=== PATIENT | female | born 1965 | race Caucasian/White ===

== ENCOUNTER → 2017-01-01 | Outpatient (CLI) | payer OTHER ==
--- NOTE | 2017-01-03 07:55 | MM ---
Reason for exam: follow-up at short interval from prior study. Last mammogram was performed 8 months ago. History: Patient is postmenopausal. Benign excisional biopsy of the right breast, 1995. Took hormonal contraceptives for 6 months beginning at age 22. Physical Findings: Nurse did not find any significant physical abnormalities on exam. MG Diagnostic Mammo RT w CAD CC and MLO view(s) were taken of the right breast. Prior study comparison: May 10, 2016, right breast MG work up mamm w CAD RT. April 14, 2016, bilateral MG screening mammo w CAD. The breast tissue is heterogeneously dense. This may lower the sensitivity of mammography. Finding: There are a few typically benign round calcifications in the right breast. There is no discrete abnormality. These results were verbally communicated with the patient and result sheet given to the patient on 01/01/17. ASSESSMENT: Benign, BI-RAD 2 RECOMMENDATION: Routine screening mammogram of both breasts in 4 months. Back on schedule.
--- NOTE | 2017-01-03 08:01 | USB ---
Reason for exam: follow-up at short interval from prior study. History: Patient is postmenopausal. Benign excisional biopsy of the right breast, 1995. Took hormonal contraceptives for 6 months beginning at age 22. US Breast RT Right breast ultrasound includes all four quadrants, the retroareolar region and axilla. Finding demonstrate no cystic or solid lesion greater than 0.50c and a 3 x 2 x 3mm oval too small to characterize lesion at 1 o'clock, stable. These results were verbally communicated with the patient and result sheet given to the patient on 01/01/17. ASSESSMENT: Benign, BI-RAD 2 RECOMMENDATION: Routine screening mammogram of both breasts in 4 months. Back on schedule.
== END | disposition home or self-care (01) ==
LOC: RADMAMWWP 07:40
PROVIDERS: ATTEND Family Medicine
DX: N63 Unspecified lump in breast (principal); R92.8 Other abnormal and inconclusive findings on diagnostic imaging of breast
CPT/HCPCS: 76641; G0206

== ENCOUNTER → 2017-01-01 | Outpatient (CLI) | payer OTHER | END | disposition home or self-care (01) | LOC: RADMAMWWP 07:45 | PROVIDERS: ATTEND Family Medicine | DX: Z53.9 Procedure and treatment not carried out, unspecified reason (principal) ==

== ENCOUNTER → 2017-08-30 | Outpatient (CLI) | payer OTHER ==
--- NOTE | 2017-08-30 14:01 | MM ---
Reason for exam: screening (asymptomatic). Last mammogram was performed 8 months ago. History: Patient is postmenopausal. Family history of breast cancer in maternal cousin at age 35. Benign excisional biopsy of the right breast, 1995. Took hormonal contraceptives for 6 months beginning at age 22. Physical Findings: A clinical breast exam by your physician is recommended on an annual basis and results should be correlated with mammographic findings. MG Screening Mammo w CAD Bilateral CC and MLO view(s) were taken. Prior study comparison: January 01, 2017, right breast MG diagnostic mammo RT w CAD. May 10, 2016, right breast MG work up mamm w CAD RT. The breast tissue is extremely dense which could obscure a lesion on mammography. There are typically benign round calcifications in the right breast. There is no discrete abnormality. ASSESSMENT: Benign, BI-RAD 2 RECOMMENDATION: Routine screening mammogram of both breasts in 1 year.
== END | disposition home or self-care (01) ==
LOC: RADMAMWWP 06:57
PROVIDERS: ATTEND Family Medicine
DX: Z12.31 Encounter for screening mammogram for malignant neoplasm of breast (principal)
CPT/HCPCS: 77067

== ENCOUNTER → 2018-05-27 | Outpatient (CLI) | payer OTHER ==
--- NOTE | 2018-05-27 08:56 | CT ---
EXAMINATION TYPE: CT abdomen pelvis w con DATE OF EXAM: 05/27/2018 HISTORY: hematuria CT DLP: 517mGycm Automated Exposure Control for Dose Reduction was Utilized. CONTRAST: CT scan of the abdomen and pelvis is performed with IV Contrast, patient injected with 100 mL of Isov ue 300. COMPARISON: None. FINDINGS: LUNG BASES: No significant abnormality is appreciated. LIVER/GB: No significant abnormality is appreciated. PANCREAS: No significant abnormality is seen. SPLEEN: No significant abnormality is seen. ADRENALS: No significant abnormality is seen. KIDNEYS: There is symmetric cortical medullary uptake and excretion from both kidneys without evidenc e of concerning solid or cystic renal mass or hydronephrosis identified bilaterally. No intraluminal calculi or suspicious mass in the bladder is present. BOWEL: Oral contrast reaches level of sigmoid colon. There is no suspicious small or large bowel dila tation. UTERUS/ADNEXA: Uterus is heterogeneous in appearance, anteverted in shape projecting to right of midl ine, some lobulation is present. Underlying fibroids are not excluded. There are scattered bilateral pelvic phleboliths. LYMPH NODES: No greater than 1cm abdominal or pelvic lymph nodes are appreciated. OSSEOUS STRUCTURES: No significant abnormality is seen. OTHER: No significant additional abnormality is seen. IMPRESSION: 1. No renal stones or suspicious mass identified to account for patient's symptoms. Possible underlyi ng fibroids otherwise unremarkable study.
== END ==
LOC: RADCTMAIN 06:44
PROVIDERS: ATTEND Urology
DX: R31.29 Other microscopic hematuria (principal); Z91.040 Latex allergy status; Z88.1 Allergy status to other antibiotic agents
CPT/HCPCS: 74177; Q9967

== ENCOUNTER → 2018-11-18 | Outpatient (CLI) | payer OTHER ==
--- NOTE | 2018-11-19 08:09 | MM ---
Reason for exam: screening (asymptomatic). Last mammogram was performed 1 year and 3 months ago. History: Patient is postmenopausal. Family history of breast cancer in maternal cousin at age 35 and breast cancer in maternal aunt. Benign excisional biopsy of the right breast, 1995. Took hormonal contraceptives for 6 months beginning at age 22. Physical Findings: A clinical breast exam by your physician is recommended on an annual basis and results should be correlated with mammographic findings. MG Screening Mammo w CAD Bilateral CC and MLO view(s) were taken. Prior study comparison: August 30, 2017, bilateral MG screening mammo w CAD. January 01, 2017, right breast MG diagnostic mammo RT w CAD. The breast tissue is heterogeneously dense. This may lower the sensitivity of mammography. No significant changes when compared with prior studies. ASSESSMENT: Negative, BI-RAD 1 RECOMMENDATION: Routine screening mammogram of both breasts in 1 year.
== END | disposition home or self-care (01) ==
LOC: RADMAMWWP 07:05
PROVIDERS: ATTEND Family Medicine
DX: Z12.31 Encounter for screening mammogram for malignant neoplasm of breast (principal)
CPT/HCPCS: 77067

== ENCOUNTER → 2019-03-20 | Outpatient (CLI) | payer OTHER ==
--- NOTE | 2019-03-20 08:49 | BD ---
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 EXAM MEASUREMENTS: Bone mineral densitometry was performed using the [employer] System. Bone mineral density as measured about the Lumbar spine is: ----- L1-L4(G/cm2): 0.718 T Score Values are as follows: ----- L1: -3.3 ----- L2: -4.1 ----- L3: -4.0 ----- L4: -4.1 ----- L1-L4: -3.9 Bone mineral density FIRST DEXA STUDY AT [facility] Bone mineral density about the R hip (g/cm2): 0.843 Bone mineral density about the L hip (g/cm2): 0.830 T Score values are as follows: -----R Neck: -1.9 -----L Neck: -1.8 -----R Total: -1.3 -----L Total: -1.4 Bone mineral density FIRST DEXA STUDY AT [facility] FRAX%s: THERE IS A 12.2% CHANCE FOR A MAJOR OSTEOPOROTIC FX AND A 1.6% FOR HIP.....PROBABILITY FOR FX IN 10 YRS TIME IMPRESSION: Osteoporosis (T Score less than -2.5) with regards to the lumbar spine. There is increased fracture risk and therapy is usually indicated based on age. Re-Screen 1-2 years. NOTE: T-SCORE=SD OF THE YOUNG ADULT MEAN.
== END | disposition home or self-care (01) ==
LOC: RADBDWWP 07:12
PROVIDERS: ATTEND Family Medicine
DX: M81.6 Localized osteoporosis [Lequesne] (principal)
CPT/HCPCS: 77080

== ENCOUNTER → 2020-01-02 | Outpatient (CLI) | payer OTHER ==
--- NOTE | 2020-01-05 09:24 | MM ---
Reason for exam: screening (asymptomatic). Last mammogram was performed 1 year and 1 month ago. History: Patient is postmenopausal. Family history of breast cancer in maternal cousin at age 35 and breast cancer in maternal aunt. Benign excisional biopsy of the right breast, 1995. Took hormonal contraceptives for 6 months beginning at age 22. Physical Findings: A clinical breast exam by your physician is recommended on an annual basis and results should be correlated with mammographic findings. MG Screening Mammo w CAD Bilateral CC and MLO view(s) were taken. Prior study comparison: November 18, 2018, bilateral MG screening mammo w CAD. August 30, 2017, bilateral MG screening mammo w CAD. The breast tissue is heterogeneously dense. This may lower the sensitivity of mammography. There are benign appearing round calcifications bilaterally. There is no discrete abnormality. ASSESSMENT: Benign, BI-RAD 2 RECOMMENDATION: Routine screening mammogram of both breasts in 1 year.
== END | disposition home or self-care (01) ==
LOC: RADMAMWWP 07:22
DX: Z12.31 Encounter for screening mammogram for malignant neoplasm of breast (principal); Z88.1 Allergy status to other antibiotic agents; Z91.040 Latex allergy status
CPT/HCPCS: 77067

== ENCOUNTER → 2020-06-28 | Outpatient (CLI) | payer OTHER ==
--- NOTE | 2020-06-28 17:29 | BD ---
EXAMINATION TYPE: Axial Bone Density DATE OF EXAM: 06/28/2020 COMPARISON: 03/20/2019 CLINICAL HISTORY: Postmenopausal screening Height: 63.5 IN Weight: 159 LBS FRAX RISK QUESTIONS: History of Fracture in Adulthood: T-SPINE COMPRESSION 09/19 RISK FACTORS HISTORY OF: Spine Fracture: T-SPINE COMPRESSION FRACTURE 09/2017 Family History of Osteoporosis: MOTHER Active: YES Diet low in dairy products/other sources of calcium: YES Postmenopausal woman: AGE 46 MEDICATIONS: Additional Medications: CALCIUM, VIT D, L-LYSINE, CRANBERRY, IMMUNE BOOST, B-12 EXAM MEASUREMENTS: Bone mineral densitometry was performed using the [employer] System. Bone mineral density as measured about the Lumbar spine is: ----- L1-L4(G/cm2): 0.698 T Score Values are as follows: ----- L2: -4.0 ----- L3: -4.5 ----- L4: -4.3 ----- L1-L4: -4.0 Bone mineral density has: Decreased -3.8% since study of: 03/20/2019 Bone mineral density about the R hip (g/cm2): 0.763 Bone mineral density about the L hip (g/cm2): 0.748 T Score values are as follows: -----R Neck: -2.1 -----L Neck: -2.0 -----R Total: -1.3 -----L Total: -1.5 Bone mineral density has: Decreased -1.2% since study of: 03/20/2019 IMPRESSION: Osteoporosis (T Score less than -2.5). There is increased fracture risk and therapy is usually indicated based on age. Re-Screen 1-2 years. NOTE: T-SCORE=SD OF THE YOUNG ADULT MEAN.
== END | disposition home or self-care (01) ==
LOC: RADBDWWP 07:20
PROVIDERS: ATTEND Physician Assistant Medical
DX: M81.0 Age-related osteoporosis without current pathological fracture (principal)
CPT/HCPCS: 77080

== ENCOUNTER → 2020-07-23 | Outpatient (CLI) | payer OTHER ==
--- NOTE | 2020-07-23 14:19 | MR ---
EXAMINATION TYPE: MR lumbar spine wo con DATE OF EXAM: 07/23/2020 COMPARISON: CT abdomen and pelvis May 27, 2018 HISTORY: Low Back Pain and discomfort since June 04, 2020 extending into the left buttocks and thig h. TECHNIQUE: Multiplanar, multisequence imaging of the lumbar spine is performed without IV contrast. FINDINGS: Sagittal images of the lumbar spine show new mild to moderate height loss involving superio r L5 endplate with heterogeneous Modic type III endplate changes. Alignment stable and satisfactory. Multilevel disc desiccation. Mild disc space narrowing L3-L4 level redemonstrated. The conus medulla ris is normal in position and signal ending mid L1 level. There is round low T1 and T2 lesion superio r T12 vertebra sagittal image 8 corresponding to sclerotic lesion presumed benign bone island. Axial images at T12-L1 level appear within normal limits. Axial images at L1-L2 level shows tiny central disc protrusion minimally effacing anterior thecal sac . Axial images at L2-L3 level appear within normal limits. Axial images at L3-L4 level show mild broad disc bulge mildly effaces the anterior thecal sac along w ith mild facet degenerative changes bilaterally. There is left foraminal disc protrusion causing mild to moderate left-sided anterior inferior neural foraminal narrowing. There is mild right-sided anter ior inferior neural foraminal narrowing. Axial images at L4-L5 level shows mild/moderate broad disc bulge and mild facet degenerative changes bilaterally. There is effacement of the anterior thecal sac. There is mild to moderate right greater than left anterior inferior neural foraminal narrowing. Axial images at the L5-S1 level show posterior annular tear and central disc protrusion without spina l canal is preserved that there is increased epidural fat. There is mild facet arthropathy bilaterall y. Patent bilateral neural foramina. Moderately distended fluid-filled stomach noted. Extrarenal pelvises bilaterally. Paraspinal muscle b ulk preserved. IMPRESSION: Multilevel degenerative changes in the lumbar spine as detailed above. Suspect subacute m ild to borderline moderate compression type fracture involving L5 superior endplate. Finding new from May 27, 2018 CT.
== END | disposition home or self-care (01) ==
LOC: RADMRIMAIN 07:39
PROVIDERS: ATTEND Physician Assistant Medical
DX: M47.816 Spondylosis without myelopathy or radiculopathy, lumbar region (principal); Z91.040 Latex allergy status; Z88.1 Allergy status to other antibiotic agents
CPT/HCPCS: 72148

== ENCOUNTER 2020-08-01 13:49 | Emergency (ER) | payer OTHER ==
--- NOTE | 2020-08-01 14:28 | ED ---
General Adult HPI - General Chief complaint: Shortness of Breath Stated complaint: +COVID, SOB Time Seen by Provider: 08/01/20 14:00 Source: patient Mode of arrival: ambulatory Limitations: no limitations - History of Present Illness Initial comments: Dictation was produced using [employer] dictation software. please excuse any grammatical, word or spelling errors. This patient was cared for during a federal and state declared state of emergency secondary to Covid 19 Chief Complaint: 54-year-old female presents with chest pain shortness of breath. She is Covid 19 Positive History of Present Illness: 54-year-old female she was tested positive for Covid last week. Patient's been symptomatic for about 7-8 days. 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 Patient does not know how she contracted the virus. She states that she had emergency department that she is persistently dyspneic on top of having some pleuritic chest pain. Patient denies any lower extremity symptoms. She denies any medical problems. No history of hypertension diabetes. She does not take any medications on a regular basis. She does not have any history of heart disease. The ROS documented in this emergency department record has been reviewed and confirmed by me. Those systems with pertinent positive or negative responses have been documented in the HPI. All other systems are other negative and/or noncontributory. PHYSICAL EXAM: General Impression: Alert and oriented x3, not in acute distress HEENT: Normocephalic atraumatic, extra-ocular movements intact, pupils equal and reactive to light bilaterally, mucous membranes moist. Cardiovascular: Heart regular rate and rhythm Chest: Able to complete full sentences, no retractions, no tachypnea Abdomen: abdomen soft, non-tender, non-distended, no organomegaly Musculoskeletal: Pulses present and equal in all extremities, no peripheral edema Motor: no focal deficits noted Neurological: CN II-XII grossly intact, no focal motor or sensory deficits noted Skin: Intact with no visualized rashes Psych: Normal affect and mood ED course: 54 yo female presents with dyspnea and chest pain. She is Covid 19 positive. Signs upon arrival shows 99% room air, respiratory 24. Rest vital signs within acceptable limits. Physical examination is benign Laboratory evaluation obtained. CBC is unremarkable. No leukocytosis. Coag panel is negative. D-dimer is 0.73, metabolic panel shows sodium of 129 chest x-ray shows mild right lower lobe pneumonia. CT angiogram of the chest ordered for elevated d-dimer. There is ground glass interstitial pulmonary infiltrates posteriorly with no suspicious pulmonary mass or evidence of pulmonary embolism. Patient told the results. Patient does not meet criteria for monoclonal antibody administration. She continues to be non-hypoxic. She is told of her sodium levels. She states that she has not been eating or drinking regularly. Patient is told to hydrate herself well at home. She is agreeable for disc harge. She has a pulse oximeter at home that she is told to continue monitoring her oxygen levels. She is also told to make an appointment with her primary care physician as soon as possible though somewhat can check on her respiratory status and also recheck her sodium levels. Patient given a dose of Decadron. EKG interpretation: Ventricular rate 82, normal sinus rhythm,. 174, QRS 66, QTC 450. No SC prolongation, no QTC prolongation, no ST or T-wave changes noted. Overall, this EKG is unremarkable - Related Data Home Medications Medication Instructions Recorded Confirmed No Known Home Medications 08/01/20 08/01/20 Allergies Allergy/AdvReac Type Severity Reaction Status Date / Time ciprofloxacin [From Cipro] AdvReac Chest Pain Verified 08/01/20 16:21 Review of Systems ROS Statement: Those systems with pertinent positive or pertinent negative responses have been documented in the HPI. ROS Other: All systems not noted in ROS Statement are negative. Past Medical History Past Medical History: No Reported History History of Any Multi-Drug Resistant Organisms: None Reported Past Surgical History: Appendectomy, Tonsillectomy Past Psychological History: No Psychological Hx Reported Smoking Status: Never smoker Past Alcohol Use History: None Reported Past Drug Use History: None Reported General Exam Limitations: no limitations Course Vital Signs 08/01/20 08/01/20 13:57 16:07 Temperature 98 F 97.9 F Pulse Rate 100 88 Respiratory 24 18 Rate Blood Pressure 136/94 114/81 O2 Sat by Pulse 99 98 Oximetry Medical Decision Making - Lab Data Result diagrams: 08/01/20 14:38 08/01/20 14:38 Lab Results 08/01/20 08/01/20 08/01/20 Range/Units 14:38 14:38 14:38 WBC 5.6 (3.8-10.6) k/uL RBC 4.96 (3.80-5.40) m/uL Hgb 14.9 (11.4-16.0) gm/dL Hct 43.2 (34.0-46.0) % MCV 87.2 (80.0-100.0) fL MCH 30.0 (25.0-35.0) pg MCHC 34.5 (31.0-37.0) g/dL RDW 12.9 (11.5-15.5) % Plt Count 157 (150-450) k/uL MPV 8.8 Neutrophils % 74 % Lymphocytes % 16 % Monocytes % 7 % Eosinophils % 1 % Basophils % 0 % Neutrophils # 4.1 (1.3-7.7) k/uL Lymphocytes # 0.9 L (1.0-4.8) k/uL Monocytes # 0.4 (0-1.0) k/uL Eosinophils # 0.0 (0-0.7) k/uL Basophils # 0.0 (0-0.2) k/uL PT 9.8 (9.0-12.0) sec INR 0.9 (<1.2) APTT 22.2 (22.0-30.0) sec D-Dimer 0.73 H (<0.60) mg/L FEU Sodium 129 L (137-145) mmol/L Potassium 4.2 (3.5-5.1) mmol/L Chloride 95 L (98-107) mmol/L Carbon Dioxide 25 (22-30) mmol/L Anion Gap 9 mmol/L BUN 17 (7-17) mg/dL Creatinine 0.89 (0.52-1.04) mg/dL Est GFR (CKD-EPI)AfAm 85 (>60 ml/min/1.73 sqM) Est GFR (CKD-EPI)NonAf 74 (>60 ml/min/1.73 sqM) Glucose 94 (74-99) mg/dL Plasma Lactic Acid Javier (0.7-2.0) mmol/L Calcium 8.8 (8.4-10.2) mg/dL Magnesium 2.0 (1.6-2.3) mg/dL Total Bilirubin 0.5 (0.2-1.3) mg/dL AST 49 H (14-36) U/L ALT 26 (4-34) U/L Alkaline Phosphatase 70 (38-126) U/L Lactate Dehydrogenase 594 (313-618) U/L C-Reactive Protein 9.8 (<10.0) mg/L Total Protein 7.0 (6.3-8.2) g/dL Albumin 4.0 (3.5-5.0) g/dL 08/01/20 Range/Units 14:38 WBC (3.8-10.6) k/uL RBC (3.80-5.40) m/uL Hgb (11.4-16.0) gm/dL Hct (34.0-46.0) % MCV (80.0-100.0) fL MCH (25.0-35.0) pg MCHC (31.0-37.0) g/dL RDW (11.5-15.5) % Plt Count (150-450) k/uL MPV Neutrophils % % Lymphocytes % % Monocytes % % Eosinophils % % Basophils % % Neutrophils # (1.3-7.7) k/uL Lymphocytes # (1.0-4.8) k/uL Monocytes # (0-1.0) k/uL Eosinophils # (0-0.7) k/uL Basophils # (0-0.2) k/uL PT (9.0-12.0) sec INR (<1.2) APTT (22.0-30.0) sec D-Dimer (<0.60) mg/L FEU Sodium (137-145) mmol/L Potassium (3.5-5.1) mmol/L Chloride (98-107) mmol/L Carbon Dioxide (22-30) mmol/L Anion Gap mmol/L BUN (7-17) mg/dL Creatinine (0.52-1.04) mg/dL Est GFR (CKD-EPI)AfAm (>60 ml/min/1.73 sqM) Est GFR (CKD-EPI)NonAf (>60 ml/min/1.73 sqM) Glucose (74-99) mg/dL Plasma Lactic Acid Javier 0.9 (0.7-2.0) mmol/L Calcium (8.4-10.2) mg/dL Magnesium (1.6-2.3) mg/dL Total Bilirubin (0.2-1.3) mg/dL AST (14-36) U/L ALT (4-34) U/L Alkaline Phosphatase (38-126) U/L Lactate Dehydrogenase (313-618) U/L C-Reactive Protein (<10.0) mg/L Total Protein (6.3-8.2) g/dL Albumin (3.5-5.0) g/dL Disposition Clinical Impression: Hyponatremia, COVID-19 Disposition: HOME SELF-CARE Condition: Fair Additional Instructions: Today you were evaluated for symptoms consistent with upper respiratory infection. Today you tested positive for Covid 19. Your are stable for discharge, however it is instructed to to seek immediate medical attention especially if you develop worsening symptoms especially respiratory distress. If possible, try to obtain a pulse oximeter and monitor your oxygen at home. In the meantime please remain in quarantine for 14 days. For any other questions please contact [facility] for here in emergency department or [facility] Department at [phone] Today your labs showed an abnormal sodium level. Your level was measured to be 129. This is likely secondary to poor oral intake. You are encouraged strongly to increase her hydration and oral intake. You must follow up with your primary care physician for outpatient recheck of sodium levels. Continue to monitor your oxygen levels at home. Please seek medical attention if you develop worsening shortness of breath and/or hypoxia Is patient prescribed a controlled substance at d/c from ED?: No Referrals: [facility],Clinic [Primary Care Provider] - 1-2 days Time of Disposition: 17:04
[2020-08-01 15:06] LABS: Calcium 8.8 mg/dL (8.4-10.2); Potassium 4.2 mmol/L (3.5-5.1); Total Bilirubin 0.5 mg/dL (0.2-1.3)
[2020-08-01 15:16] LABS: INR 0.9 (<1.2); Partial Thromboplastin Time 22.2 sec (22.0-30.0); Prothrombin Time 9.8 sec (9.0-12.0)
[2020-08-01 15:20] LABS: Basophils % (A) 0 %; Eosinophils % (A) 1 %; HCT 43.2 % (34.0-46.0); HGB 14.9 gm/dL (11.4-16.0); Lymphocytes # (A) 0.9 k/uL (1.0-4.8); Lymphocytes % (A) 16 %; MCHC 34.5 g/dL (31.0-37.0); MCV 87.2 fL (80.0-100.0); Mean Platelet Volume 8.8; Monocytes # (A) 0.4 k/uL (0-1.0); Monocytes % (A) 7 %; Neutrophils # (A) 4.1 k/uL (1.3-7.7); Neutrophils % (A) 74 %; Platelet Count 157 k/uL (150-450); RBC 4.96 m/uL (3.80-5.40); RDW 12.9 % (11.5-15.5); WBC 5.6 k/uL (3.8-10.6)
[2020-08-01 15:25] LABS: C Reactive Protein 9.8 mg/L (<10.0)
--- NOTE | 2020-08-01 15:34 | XR ---
EXAMINATION TYPE: XR chest 1V portable DATE OF EXAM: 08/01/2020 COMPARISON: NONE HISTORY: Short of breath TECHNIQUE: Single view FINDINGS: Heart and mediastinum are normal. There is some increased 40 marginated density over the ri ght lower lobe consistent with mild infiltrate. There is no heart failure. There are no hilar masses. There is no pleural effusion. IMPRESSION: There is evidence of a mild right lower lobe pneumonia. Normal heart.
[2020-08-01 15:37] LABS: D-Dimer 0.73 mg/L FEU (<0.60)
[2020-08-01 16:09] VITALS: RESP 18; TEMP 97.9
[2020-08-01] MEDS ORDERED: SODIUM CHLORIDE 0.9% 500 ML 500 ML IV STA (16:45)
--- NOTE | 2020-08-01 16:51 | CT ---
EXAMINATION TYPE: CT angio chest DATE OF EXAM: 08/01/2020 COMPARISON: None HISTORY: Covid + elevated d-dimer CT DLP: 226.5 mGycm Automated exposure control for dose reduction was used. CONTRAST: Performed with IV Contrast, patient injected with 100 mL of Isovue 370. There is patchy peripheral groundglass interstitial infiltrates in the posterior lung nguyễn. There i s no pulmonary mass. There is no pleural effusion. Heart size is normal. There is no pericardial effu marcela. There is normal contrast opacification of the pulmonary arteries. There are no filling defects. Thora cic aorta is intact. There is no aneurysm or dissection. Ascending aorta measures 3.5 cm. There is no mediastinal adenopathy. There are no hilar masses. The bony thorax shows mild wedging of T9 and T7 vertebra up to 30%. There is slight thoracic kyphosis . Fractures appear old. The sternum is intact. The upper abdominal soft tissues are intact. IMPRESSION: Groundglass interstitial pulmonary infiltrates posteriorly. No suspicious pulmonary mass. No evidence of pulmonary embolism.
[2020-08-01] MEDS ORDERED: dexAMETHasone 4 MG TAB PO STA (17:04)
[2020-08-01 17:34] VITALS: BP 110/68; PULSE 78
[2020-08-02 09:33] LABS: Ferritin 171.3 ng/mL (10.0-291.0)
== END 2020-08-01 17:34 | disposition home or self-care (01) ==
LOC: EC 13:49
DX: U07.1 COVID-19 (principal); E87.1 Hypo-osmolality and hyponatremia; Z88.1 Allergy status to other antibiotic agents
CPT/HCPCS: 36415; 93005; 85379; 80053; 82728; 83605; 83615; 83735; 85025; 85610; 85730; 86140; 87040; 84145; 71045; 71275; 99285; Q9967

== ENCOUNTER → 2021-01-27 | Outpatient (CLI) | payer OTHER ==
--- NOTE | 2021-01-31 12:29 | MM ---
Reason for exam: screening (asymptomatic). Last mammogram was performed 1 year and 1 month ago. History: Patient is postmenopausal. Family history of breast cancer in maternal cousin at age 35 and breast cancer in maternal aunt. Benign excisional biopsy of the right breast, 1995. Took hormonal contraceptives for 6 months beginning at age 22. Physical Findings: A clinical breast exam by your physician is recommended on an annual basis and results should be correlated with mammographic findings. MG Screening Mammo w CAD Bilateral CC and MLO view(s) were taken. Prior study comparison: January 02, 2020, bilateral MG screening mammo w CAD. November 18, 2018, bilateral MG screening mammo w CAD. The breast tissue is heterogeneously dense. This may lower the sensitivity of mammography. No significant changes when compared with prior studies. ASSESSMENT: Benign, BI-RAD 2 RECOMMENDATION: Routine screening mammogram of both breasts in 1 year.
== END | disposition home or self-care (01) ==
LOC: RADMAMWWP 16:39
PROVIDERS: ATTEND Family Medicine
DX: Z12.31 Encounter for screening mammogram for malignant neoplasm of breast (principal); Z78.0 Asymptomatic menopausal state; Z80.3 Family history of malignant neoplasm of breast; Z79.3 Long term (current) use of hormonal contraceptives
CPT/HCPCS: 77067

== ENCOUNTER → 2021-04-22 | Outpatient (CLI) | payer OTHER ==
--- NOTE | 2021-04-22 17:11 | CT ---
EXAMINATION TYPE: CT urogram wo/w con DATE OF EXAM: 04/22/2021 COMPARISON: 05/27/2018 HISTORY: 55-year-old female R31.0, gross hematuria TECHNIQUE: Contiguous axial scanning of the abdomen and pelvis performed without and with IV Contrast , patient injected with 100 mL of Isovue 300. Delayed images through the kidneys and bladder were obt ained. Coronal/sagittal reconstructions performed. 3-D reconstructions generated on a dedicated works tation. CT DLP: 2045.4 mGycm Automated exposure control for dose reduction was used. FINDINGS: Heart normal size without pericardial effusion. Some mild dependent atelectasis on the posterior lung bases. No pleural effusion. No focal liver lesion or biliary ductal dilatation. Portal venous system is patent. Gallbladder, adrenal glands, spleen, and pancreas within normal limits. No nephrolithiasis. No suspicious renal mass. There is an extrarenal pelvis on both sides, right larger than left. Symmetric uptake and excretion o f contrast from the kidneys. No abnormal calyceal dilatation. On the right, the distal most right ureter is nonopacified. On the left, the distal third portion of the ureter is nonopacified limiting assessment but no abnormal soft tissue thickening is seen in thes e regions. Otherwise, the collecting systems are clear without suspicious filling defect. No dilated small bowel, free fluid, or free air. Some prominent fluid filled small bowel loops in the mid to lower abdomen and pelvis. Mild overall st ool burden. No pericolic inflammatory change. Suspect ectatic vasculature or varices in the left periaortic region given stability from 05/27/2018 rather than lymphadenopathy. Otherwise, no mesenteric or retroperitoneal lymphadenopathy. There is bulging laxity of the levator ani musculature and low positioning of the base of the bladder . Numerous pelvic phleboliths. Uterus is anteverted. There is a round 1.8 cm enhancing fibroid that is intramural and partially subs erosal along the anterior body. Both ovaries are visualized. No abnormal fluid collection in the pelv is or pelvic lymphadenopathy. No suspicious filling defect identified within the bladder. Bones: Superior endplate Schmorl's node of L5 is new. Facet arthropathy lower lumbar spine. IMPRESSION: 1. PELVIC FLOOR RELAXATION WITH LOW POSITIONING OF THE BASE OF THE BLADDER. 2. BILATERAL EXTRARENAL PELVES, RIGHT LARGER THAN THE LEFT. NO CALYCEAL DILATATION TO SUGGEST HYDRONE PHROSIS. 3. NO RENAL CALCULI OR SUSPICIOUS RENAL/COLLECTING SYSTEM LESION TO ACCOUNT FOR THE PATIENT'S HEMATUR IA. THE DISTAL URETERS REMAIN NONOPACIFIED BUT NO ABNORMAL SOFT TISSUE THICKENING IS SEEN HERE. [facility] CLINICAL CORRELATION RECOMMENDED. 4. REDEMONSTRATED INTRAMURAL AND PARTIALLY SUBSEROSAL 1.8 CM FOCAL FIBROID ALONG THE ANTERIOR BODY.
== END | disposition home or self-care (01) ==
LOC: RADCTMAIN 14:00
PROVIDERS: ATTEND Urology
DX: D25.1 Intramural leiomyoma of uterus (principal); D25.2 Subserosal leiomyoma of uterus; R31.0 Gross hematuria
CPT/HCPCS: 82565; 84520; 74178; 74400; Q9967

== ENCOUNTER → 2021-09-30 | Outpatient (CLI) | payer OTHER ==
--- NOTE | 2021-09-30 11:57 | BD ---
EXAMINATION TYPE: Axial Bone Density DATE OF EXAM: 09/30/2021 COMPARISON: Prior DEXA scan June 28, 2020 CLINICAL HISTORY: 55 years year old Female. ICD-10 CODE: M81.6 Localized Osteoporosis Height: 5 FT 3 IN Weight: 170 FRAX RISK QUESTIONS: Alcohol (3 or more units per day): NO Family History (Parent hip fracture): NO Glucocorticoids (More than 3mos): NO (Ex: prednisone, prednisolone, methylprednisolone, dexamethasone, and hydrocortisone). History of Fracture in Adulthood: YES Secondary Osteoporosis: 1. Type 1 Diabetes: NO 2. Hyperthyroidism: NO 3. Menopause before 45: NO 4. Malnutrition: NO 5. Chronic liver disease: NO Rheumatoid Arthritis: NO Current Tobacco Use: NO RISK FACTORS HISTORY OF: History of Wrist Fracture: RT WRIST When: 2020 Surgery to Spine/Hip(right/left)/Wrist (right/left): NO Family History of Osteoporosis: YES Active: YES Diet low in dairy products/other sources of calcium: NO Postmenopausal woman: YES Take estrogen and/or progesterone medications: NO Lost more than 2 inches in height since high school: YES Frequent falls: NO Poor Health: GOOD Hyperparathyroidism: NO Adrenal Insufficiency: NO MEDICATIONS: Additional Medications: NONE Additional History: EXAM MEASUREMENTS: Bone mineral densitometry was performed using the [employer] System. Bone mineral density as measured about the Lumbar spine is: ----- L1-L4(G/cm2): 0.756 T Score Values are as follows: ----- L1: -2.7 ----- L2: -3.8 ----- L3: -4.0 ----- L4: -3.7 ----- L1-L4: -3.5 Bone mineral density has: INCREASED 8.1 % since study of: 2020 Bone mineral density about the R hip (g/cm2): 0.768 Bone mineral density about the L hip (g/cm2): 0.746 T Score values are as follows: -----R Neck: -1.9 -----L Neck: -2.1 -----R Total: -1.4 -----L Total: -1.5 Bone mineral density has: DECREASED -0.7 % since study of: 2020 FRAX%s: The graph provided illustrates a 14.3 % chance for a major osteoporotic fx and a 2.1 % chance for the hips probability for fx in 10 years time. IMPRESSION: Osteoporosis (T Score less than -2.5) remains present. There is increased fracture risk and therapy is usually indicated based on age. Re-Screen 1-2 years. NOTE: T-SCORE=SD OF THE YOUNG ADULT MEAN.
== END | disposition home or self-care (01) ==
LOC: RADBDWWP 08:50
PROVIDERS: ATTEND Family Medicine
DX: M81.0 Age-related osteoporosis without current pathological fracture (principal)
CPT/HCPCS: 77080

== ENCOUNTER → 2022-10-02 | Outpatient (CLI) | payer OTHER ==
--- NOTE | 2022-10-02 08:06 | BD ---
EXAMINATION TYPE: Axial Bone Density DATE OF EXAM: 10/02/2022 CLINICAL HISTORY: 56 years old Female. ICD-10 CODE: M81.6 LOCALIZED OSTEOPOROSIS [[place]] Comparison: Most recent study September 30, 2021 Height: 63 Weight: 171.6 FRAX RISK QUESTIONS: Alcohol (3 or more units per day): no Family History (Parent hip fracture): no Glucocorticoids (More than 3mos): no History of Fracture in Adulthood: T-Spine, Wrist Secondary Osteoporosis: 1. Type 1 Diabetes: no 2. Hyperthyroidism: no 3. Menopause before 45: no 4. Malnutrition: no 5. Chronic liver disease: no Rheumatoid Arthritis: no Current Tobacco Use: no RISK FACTORS HISTORY OF: Hip Fracture (Right/Left): no Spine Fracture: T5 When: 2019 History of Wrist Fracture: Rt Wrist When: 2020 Surgery to Spine/Hip(right/left)/Wrist (right/left): no Family History of Osteoporosis: mom Active: yes Diet low in dairy products/other sources of calcium: yes Postmenopausal woman: yes Take estrogen and/or progesterone medications: no Lost more than 2 inches in height since high school: yes Frequent falls: no Poor Health: no Hyperparathyroidism: no Adrenal Insufficiency: no MEDICATIONS: Prednisone or other steroids: no Thyroid Medications: no Osteoporosis Medications: no Additional Medications: Calcium, Magnesium, L-lysine, Vit D, Zinc, Vit A, Vit C, Additional History: EXAM MEASUREMENTS: Bone mineral densitometry was performed using the [employer] System. Bone mineral density as measured about the Lumbar spine is: ----- L1-L4(G/cm2): 0.666 T Score Values are as follows: ----- L1: -3.8 ----- L2: -4.7 ----- L3: -4.3 ----- L4: -4.4 ----- L1-L4: -4.3 Z Score Values are as follows: ----- L1: -3.2 ----- L2: -4.2 ----- L3: -3.8 ----- L4: -3.9 ----- L1-L4: -3.8 Bone mineral density has: decreased 11.9 % since study of: 09/30/21 Bone mineral density about the R hip (g/cm2): 0.853 Bone mineral density about the L hip (g/cm2): 0.823 T Score values are as follows: -----R Neck: -2.0 -----L Neck: -2.2 -----R Total: -1.2 -----L Total: -1.5 Z Score values are as follows: -----R Neck: -1.1 -----L Neck: -1.3 -----R Total: -0.8 -----L Total: -1.0 Bone mineral density has: increased 2.1 % since study of: 09/30/2021 FRAX%s: The graph provided illustrates a 15.2% chance for a major osteoporotic fx and a 2.3% chance f or the hips probability for fx in 10 years time. IMPRESSION: Osteoporosis (T Score less than -2.5) remains present. There is increased fracture risk and therapy is usually indicated based on age. Re-Screen 1-2 years. NOTE: T-SCORE=SD OF THE YOUNG ADULT MEAN.
--- NOTE | 2022-10-03 09:20 | MM ---
Reason for Exam: Screening (asymptomatic). Last mammogram was performed 1 year(s) and 9 month(s) ago. Patient History: Menarche at age 12. First Full-Term at age 19. Postmenopausal. Patient has history of breast feeding. Hormonal Contraceptives for 6 months from age 22 until age 22. 1996, Benign Excisional Biopsy on the right side. Maternal cousin had breast cancer, age 35. Maternal aunt had breast cancer. Risk Values: Jessica 5 year model risk: 1.0%. NCI Lifetime model risk: 6.9%. Prior Study Comparison: 11/18/2018 Bilateral Screening Mammogram, [facility]. 01/02/2020 Bilateral Screening Mammogram, [facility]. 01/27/2021 Bilateral Screening Mammogram, [facility]. Tissue Density: The breast tissue is heterogeneously dense. This may lower the sensitivity of mammography. Findings: Analyzed By CAD. There is no suspicious group of microcalcifications or new suspicious mass in either breast. Overall Assessment: Negative, BI-RAD 1 Management: Screening Mammogram of both breasts in 1 year. . Patient should continue monthly self-breast exams. A clinical breast exam by your physician is recommended on an annual basis. This exam should not preclude additional follow-up of suspicious palpable abnormalities. Note on Jessica scores and lifetime risk: 1. A Jessica score greater than 3% is considered moderate risk. If this is the case, consider specialist referral to assess eligibility for a risk reducing agent. 2. If overall lifetime risk for the development of breast cancer is 20% or higher, the patient may qualify for future screening with alternating mammogram and breast MRI. Electronically signed and approved by: Aureliano Kenny DO
== END | disposition home or self-care (01) ==
LOC: RADMAMWWP 07:18
DX: Z12.31 Encounter for screening mammogram for malignant neoplasm of breast (principal); M81.6 Localized osteoporosis [Lequesne]; M85.89 Other specified disorders of bone density and structure, multiple sites; Z78.0 Asymptomatic menopausal state; Z80.3 Family history of malignant neoplasm of breast
CPT/HCPCS: 77067; 77080

== ENCOUNTER → 2022-11-24 | Outpatient (CLI) | payer OTHER ==
--- NOTE | 2022-11-24 14:52 | CT ---
EXAMINATION TYPE: CT abdomen wo/w con DATE OF EXAM: 11/24/2022 COMPARISON: 04/22/2021 and 05/27/2018 HISTORY: 56-year-old female LUQ pain, stabbing after eating TECHNIQUE: Contiguous axial scanning of the abdomen before and after administration of 100 ml Isovue 300 IV contrast. Delayed images through the kidneys and coronal/sagittal reconstructions performed. CT DLP: 831.1 mGycm Automated exposure control for dose reduction was used. FINDINGS: LUNG BASES: No significant abnormality is appreciated. LIVER/GB: No significant abnormality is appreciated. PANCREAS: No significant abnormality is seen. SPLEEN: No significant abnormality is seen. ADRENALS: No significant abnormality is seen. KIDNEYS: Redemonstrated bilateral extrarenal pelves. Otherwise, no significant abnormality is seen. BOWEL: No significant abnormality is seen. Mild stool burden. No pericolonic inflammatory change. No dilated small bowel. An ingested medication tablet located dependently within the proximal body of t he stomach. LYMPH NODES: No significant abnormality is seen. OTHER: No free fluid or free air. PELVIS: Not imaged. BONES: Superior endplate deformities of T9 and L5 are new from 2018. The L5 Schmorl's node was presen t in 2020. Findings suggest large Schmorl's nodes, likely chronic. IMPRESSION: BILATERAL EXTRARENAL PELVES REDEMONSTRATED. NO OBSTRUCTIVE UROPATHY. NO OTHER ACUTE INFLAMMATORY PROC ESS IDENTIFIED IN THE ABDOMEN TO EXPLAIN THE PATIENT'S SYMPTOMS.
== END | disposition home or self-care (01) ==
LOC: RADCTMAIN 10:08
DX: R10.10 Upper abdominal pain, unspecified (principal)
CPT/HCPCS: 74170; Q9967

== ENCOUNTER → 2022-11-30 | Outpatient (CLI) | payer OTHER ==
--- NOTE | 2022-11-30 11:25 | CA ---
Exercise Stress Test Report Name: Trini Solares Exam Date: 11/30/2022 09:27 Exam Location: [place] Stress Ht (in): 63 Wt (lb): 170 BSA: 1.80 Ordering Phys: [facility], [facility] Referring Phys: Neha Peña PAC Technologist: Paul Elizabeth Age: 56 Gender: F : 1965 Procedure CPT: Indications: R53.83 ICD-10 Codes: Patient History: CHEST PAIN, FATIGUE, NUMBNESS IN FACE/NECK, PRIOR CA, PRIOR CARDIAC CATH, ELEVATED CHOLESTEROL LEVELS, FAMILY HX OF HEART DISEASE Medications: VITAMIN A,,,,,, VIT D-3,,,,,, CALCIUM,,,,,, L-LYSINE,,,,,, VIT C,,,,,, VIT B12,,,,,, ZINC,,,,,, NASONEX,,,,, Meds past 24 hrs: Pretest Chest Pain: STRESS TEST [place] Protocol Exercise Duration (min:sec): 11:[address] Depressions (mm): Angina Score: Cummings Score: Resting HR (bpm): 78 Peak HR (bpm): 146 Resting BP (mmHg): 117 / 80 Peak BP (mmHg): 153 / 74 MPHR: 164 Target HR: 139 % MPHR: 89 METS: 12.1 Total Dose: Peak Dose: Atropine: Double Product: 02864 BP Response: Stress Termination: MAX EXERTION/TARGET HR Stress Symptoms: EXTREMITIES TINGLING Stress Summary: ECG ANALYSIS Resting ECG: Stress ECG: CONCLUSIONS Baseline EKG revealed a normal sinus rhythm without significant ST-T changes. Patient walked on a standard [place] protocol for 11 minutes and achieved a maximal heart rate of 146 bpm which is available 85% of predicted maximal. She did not have any angina. However she didn't have at peak exercise is 6 beat run of wide QRS tachycardia asymptomatic. As exercise continued into the recovery period, the ventricular ectopy resolved. By EKG criteria this is a negative stenosis without evidence of ischemia. There was asymptomatic 6 beat run of wide QRS tachycardia. The nuclear scan results which are more pertinent will be reported by the radiologist. Dr. Laurie Perez MD (Electronically Signed) Final Date: 30 November 2022 11:24
--- NOTE | 2022-12-01 08:35 | NM ---
EXAMINATION TYPE: NM stress cardiolite complete DATE OF EXAM: 11/30/2022 COMPARISON: NONE CLINICAL INDICATION: Female, 56 years old with history of R53.83 FATIGUE; history of hypercholesterem ia and prior heart attack. TECHNIQUE: After the intravenous administration of 9.8 mCi Tc 99m Sestamibi - Rest images obtained 4 5 minutes post injection. The patient exercised using a FELICITAS protocol and 1 minute prior to peak e xercise was injected with 25.8 mCi Tc 99m Sestamibi - Stress images obtained 20 minutes post injectio n. FINDINGS: Targeted heart rate was achieved during performance of the study. Review of stress and rest SPECT charleen ges demonstrates no distinct perfusion abnormality. Gated analysis shows normal wall motion with an estimated left ventricular ejection fraction of 59 %. IMPRESSION: No scintigraphic evidence for reversible ischemia
== END | disposition home or self-care (01) ==
LOC: RADNMMAIN 10-26 07:52
DX: R07.9 Chest pain, unspecified (principal); R53.83 Other fatigue
CPT/HCPCS: 93017; 78452; A9500

== ENCOUNTER → 2023-02-16 | Day surgery (SDC) | payer OTHER ==
[2023-02-14 08:29] VITALS: BMI 30.4
[~2023-02-16] MED LIST: LACTATED RINGERS 1,000 ML IV SCH; LIDOCAINE 1% (10MG/ML) FOR IV START INTRADERMA PRN; LIDOCAINE 2% INJ 20 MG/ML (2 ML VIAL) ONE; PROPOFOL 10 MG/ML 20 ML VIAL IV ONE
[2023-02-16 06:26] VITALS: RESP 16; TEMP 97.2
--- NOTE | 2023-02-16 07:17 | P.PCN ---
Date of Procedure: 02/16/23 Procedure(s) Performed: Brief history: Patient is a pleasant 57-year-old white female scheduled for an elective upper endoscopy as well as colonoscopy as a part of evaluation of left upper quadrant abdominal pain for the last 2 years duration. She also has history of GERD intermittent heartburn. Complaining of alternating diarrhea and constipation for the last 5 years. Procedure performed: Esophagogastroduodenoscopy with biopsy Colonoscopy Preoperative diagnosis: GERD/left upper quadrant abdominal pain Change in bowel habits Anesthesia: MAC Procedure: After informed consent was obtained from the patient was brought into the endoscopy unit and IV sedation was administered by anesthesia under continuous monitoring. Initially upper endoscopy was done. The Olympus GF 160 video endoscope was inserted inserted into the mouth and esophagus intubated without any difficulty and was gradually advanced into the stomach and duodenum and carefully examined. The bulb and second part of the duodenum appeared normal. The scope was then withdrawn into the stomach adequately insufflated with air and upon careful examination the antrum had mild gastritis and biopsies were done from this area. Mucosa of the body, cardia and fundus appeared normal. The scope was then withdrawn into the esophagus. Small sliding type hiatal hernia noted. The GE junction was located at 40 cm to the incisors. It appeared regular with no erythema erosions or ulcerations. Rest of the esophagus appeared normal. Abscesses were done from the distal esophagus. Patient tolerated the procedure well. At this time the patient continued to remain sedation. Initial digital rectal examination was normal. Olympus CF 160 video colonoscope was then inserted into the rectum and gradually advanced to the cecum without any difficulty. Careful examination was performed as the scope was gradually being withdrawn. The prep was excellent. The cecum, ascending colon, transverse colon, descending colon, sigmoid colon and rectum appeared normal. Retroflexion was performed in the rectum and no lesions were noted. Patient tolerated the procedure well. Impression: 1. Upper endoscopy revealed mild antral gastritis and small hiatal hernia 2. Colonoscopy was within normal limits with no evidence of colorectal neoplasia Recommendations: Findings of this examination were discussed with the patient as well as his family.She was advised to follow with the biopsy results. Recommend repeat screening colonoscopy in 10 years.
[2023-02-16 07:36] VITALS: BP 121/81; PULSE 52
== END ==
LOC: ORWHC2ENDO 05:32
PROVIDERS: ATTEND Internal Medicine Gastroenterology
DX: K29.50 Unspecified chronic gastritis without bleeding (principal); R19.4 Change in bowel habit; K44.9 Diaphragmatic hernia without obstruction or gangrene; K21.9 Gastro-esophageal reflux disease without esophagitis; E78.5 Hyperlipidemia, unspecified; Z79.899 Other long term (current) drug therapy; Z88.1 Allergy status to other antibiotic agents; Z91.040 Latex allergy status
CPT/HCPCS: 88305; 45378; 43239; J2704; J2001

== ENCOUNTER 2023-04-01 22:27 | Emergency (ER) | payer OTHER ==
[2023-04-01 23:18] VITALS: BP 132/85; PULSE 58; RESP 18; TEMP 97.3
[2023-04-01 23:27] LABS: Basophils % (A) 1 %; Eosinophils # (A) 0.2 k/uL (0-0.7); Eosinophils % (A) 4 %; HCT 41.8 % (34.0-46.0); HGB 13.6 gm/dL (11.4-16.0); Lymphocytes % (A) 38 %; MCH 29.7 pg (25.0-35.0); MCHC 32.5 g/dL (31.0-37.0); MCV 91.6 fL (80.0-100.0); Mean Platelet Volume 8.4; Monocytes # (A) 0.4 k/uL (0-1.0); Monocytes % (A) 7 %; Neutrophils # (A) 2.5 k/uL (1.3-7.7); Neutrophils % (A) 47 %; Platelet Count 223 k/uL (150-450); RBC 4.56 m/uL (3.80-5.40); WBC 5.3 k/uL (3.8-10.6)
--- NOTE | 2023-04-01 23:41 | XR ---
EXAM: XR Chest, 2 Views CLINICAL HISTORY: ITS.REASON XR Reason: chest pain TECHNIQUE: Frontal and lateral views of the chest. COMPARISON: No relevant prior studies available. FINDINGS: Lungs: Unremarkable. No consolidation. Pleural space: Unremarkable. No pneumothorax. Heart: Unremarkable. No cardiomegaly. Mediastinum: Unremarkable. Bones/joints: Unremarkable. IMPRESSION: Normal chest x-rays.
[2023-04-01 23:56] LABS: ALT 18 U/L (4-34); AST 30 U/L (14-36); African American GFR (CKD) 83 (>60 ml/min/1.73 sqM); Albumin 4.2 g/dL (3.5-5.0); Alkaline Phosphatase 82 U/L (38-126); Anion Gap 11 mmol/L; Blood Urea Nitrogen 22 mg/dL (7-17); Calcium 9.4 mg/dL (8.4-10.2); Carbon Dioxide 22 mmol/L (22-30); Chloride 105 mmol/L (98-107); Glucose 94 mg/dL (74-99); Non-African American GFR(CKD) 72 (>60 ml/min/1.73 sqM); Potassium 4.3 mmol/L (3.5-5.1); Sodium 138 mmol/L (137-145); Total Bilirubin 0.4 mg/dL (0.2-1.3); Total Protein 7.1 g/dL (6.3-8.2)
== END 2023-04-02 00:11 | disposition left against medical advice (07) ==
LOC: EC 22:27
DX: Z53.21 Procedure and treatment not carried out due to patient leaving prior to being seen by health care provider (principal)
CPT/HCPCS: 36415; 71046; 80053; 84484; 85025; 93005; 99499

== ENCOUNTER → 2023-10-08 | Outpatient (CLI) | payer OTHER ==
--- NOTE | 2023-10-09 18:43 | MM ---
Reason for Exam: Screening (asymptomatic). Last screening mammogram was performed 12 month(s) ago. Patient History: Menarche at age 12. First Full-Term at age 19. Postmenopausal. Patient has history of breast feeding. Hormonal Contraceptives for 6 months from age 22 until age 22. 1996, Benign Excisional Biopsy on the right side. Maternal cousin had breast cancer, age 35. Maternal aunt had breast cancer. Risk Values: Jessica 5 year model risk: 1.1%. NCI Lifetime model risk: 6.7%. Prior Study Comparison: 01/01/2017 Right Diagnostic Mammogram, [facility]. 08/30/2017 Bilateral Screening Mammogram, [facility]. 11/18/2018 Bilateral Screening Mammogram, [facility]. 01/02/2020 Bilateral Screening Mammogram, [facility]. 01/27/2021 Bilateral Screening Mammogram, [facility]. 10/02/2022 Bilateral MG screening mammo w CAD, [facility]. Tissue Density: The breasts are heterogeneously dense, which may obscure small masses. Findings: Analyzed By CAD. Unchanged bilateral asymmetric densities when compared against various prior exams. There is no suspicious group of microcalcifications or new suspicious mass in either breast. Overall Assessment: Benign, BI-RAD 2 Management: Screening Mammogram of both breasts in 1 year. . Patient should continue monthly self-breast exams. A clinical breast exam by your physician is recommended on an annual basis. This exam should not preclude additional follow-up of suspicious palpable abnormalities. Note on Jessica scores and lifetime risk: 1. A Jessica score greater than 3% is considered moderate risk. If this is the case, consider specialist referral to assess eligibility for a risk reducing agent. 2. If overall lifetime risk for the development of breast cancer is 20% or higher, the patient may qualify for future screening with alternating mammogram and breast MRI. Electronically signed and approved by: Shirley Mar M.D. Radiologist
== END | disposition home or self-care (01) ==
LOC: RADMAMWWP 07:13
PROVIDERS: ATTEND Family Medicine
DX: Z12.31 Encounter for screening mammogram for malignant neoplasm of breast (principal); Z78.0 Asymptomatic menopausal state; Z80.3 Family history of malignant neoplasm of breast
CPT/HCPCS: 77067

== ENCOUNTER 2024-02-26 07:38 | Emergency (ER) | payer OTHER ==
[2024-02-26 07:43] VITALS: RESP 16
[2024-02-26 08:44] LABS: Basophils % (A) 1 %; Eosinophils # (A) 0.2 k/uL (0-0.7); Eosinophils % (A) 3 %; HCT 43.4 % (34.0-46.0); HGB 14.5 gm/dL (11.4-16.0); Lymphocytes # (A) 1.4 k/uL (1.0-4.8); Lymphocytes % (A) 31 %; MCH 30.5 pg (25.0-35.0); MCHC 33.4 g/dL (31.0-37.0); MCV 91.3 fL (80.0-100.0); Mean Platelet Volume 8.2; Monocytes # (A) 0.3 k/uL (0-1.0); Monocytes % (A) 7 %; Neutrophils # (A) 2.6 k/uL (1.3-7.7); Neutrophils % (A) 55 %; Platelet Count 241 k/uL (150-450); RBC 4.76 m/uL (3.80-5.40); RDW 13.2 % (11.5-15.5); WBC 4.6 k/uL (3.8-10.6)
[2024-02-26 08:56] LABS: Appearance,Urine Clear (Clear); Bilirubin,Urine Negative (Negative); Blood,Urine Moderate (Negative); Color,Urine Colorless; Glucose,Urine (UA) Negative (Negative); Ketones,Urine Negative (Negative); Leukocyte Esterase,Urine Negative (Negative); Mucus,Urine Rare /hpf; Nitrite,Urine Negative (Negative); Protein,Urine Negative (Negative); RBC,Urine 1 /hpf (0-5); Specific Gravity,Urine 1.005 (1.001-1.035); Urobilinogen,Urine <2.0 mg/dL (<2.0)
[2024-02-26 09:01] LABS: ALT 17 U/L (4-34); AST 32 U/L (14-36); African American GFR (CKD) 79 (>60 ml/min/1.73 sqM); Albumin 4.4 g/dL (3.5-5.0); Alkaline Phosphatase 71 U/L (38-126); Anion Gap 5 mmol/L; Blood Urea Nitrogen 24 mg/dL (7-17); Calcium 9.8 mg/dL (8.4-10.2); Carbon Dioxide 29 mmol/L (22-30); Chloride 104 mmol/L (98-107); Glucose 92 mg/dL (74-99); Lipase 77 U/L (23-300); Non-African American GFR(CKD) 68 (>60 ml/min/1.73 sqM); Potassium 5.1 mmol/L (3.5-5.1); Sodium 138 mmol/L (137-145); Total Bilirubin 0.6 mg/dL (0.2-1.3); Total Protein 7.3 g/dL (6.3-8.2)
--- NOTE | 2024-02-26 09:55 | CT ---
EXAMINATION TYPE: CT abdomen pelvis wo con DATE OF EXAM: 02/26/2024 COMPARISON: 11/24/2022 INDICATION: Rt flank pain, microscopic hematuria DLP: 506.8 mGycm, Automated exposure control for dose reduction was used. CONTRAST: 0 mL of Isovue 300. Study performed without Oral Contrast TECHNIQUE: Axial images were obtained from above the diaphragm to the pubic rami in the axial plane a t 5 mm thick sections. Reconstructed images are reviewed on the computer in the coronal plane. FINDINGS: Limited CT sections are obtained the lung bases. The lung bases are clear. CT ABDOMEN: Liver: Normal Spleen: Normal Pancreas: Normal Adrenal glands: The adrenal glands are normal. Gallbladder: Normal Kidneys: No masses are evident. No hydronephrosis is present. No cysts are present. Extrarenal pel ves appear to be present slightly more prominent on the right. Hydroureter is not identified. Aorta: Vascular calcification is within the aorta. Inferior vena cava: Normal. CT PELVIS: Phleboliths within the pelvis. Loops of bowel within the abdomen and pelvis are normal. This study is without neural contrast li miting bowel evaluation. Appendix: Not identified. No dilated tubular structure or inflammatory change is evident. Urinary bladder: Normal. Genitourinary structures: Uterus is unremarkable. Adnexa are normal. Osseous structures: No suspicious lytic or sclerotic lesions. IMPRESSION: 1. No suspicious abnormalities to account for hematuria. [facility], , 02/26/2024 9:52 AM
--- NOTE | 2024-02-26 10:44 | ED ---
Female Urogenital HPI - General Chief complaint: Urogenital Stated complaint: urogenital Time Seen by Provider: 02/26/24 07:40 Source: patient Mode of arrival: ambulatory Limitations: no limitations - History of Present Illness Initial comments: 58-year-old female previously healthy who presents to the emergency department from urgent care. States that she had a urinary tract infection in January. She went into an urgent care last night as she has had some persistent right flank pain. Pain is not reproducible upon movement. She also reported that she has been seeing blood in her urine. Urine dip was negative for infection. They did see some blood and therefore recommended that the patient come to the hospital for CT. Patient has no history of kidney stones. No fevers. Denies any injuries to the area. Denies any changes in her bowel habits. No other alleviating, precipitating modifying factors - Related Data Home Medications Medication Instructions Recorded Confirmed Allergy Pill Otc 1 tab PO DAILY 02/14/23 02/16/23 Ascorbic Acid [Vitamin C] 1,000 mg PO BID 02/14/23 02/16/23 Calcium Carbonate [Calcium] 1,300 mg PO DAILY 02/14/23 02/16/23 Cholecalciferol (Vitamin D3) 250 mcg PO DAILY 02/14/23 02/16/23 [Vitamin D3 (125 MCG = 5,000 IU)] Collagen Supplement 1 dose PO DAILY 02/14/23 02/16/23 Cyanocobalamin (Vitamin B-12) 2,500 mcg PO DAILY 02/14/23 02/16/23 [Vitamin B-12] Fish Oil 1200mg + Vitamin D3 1 tab PO BID 02/14/23 02/14/23 Magnesium 400 mg PO BID 02/14/23 02/16/23 Mucous Relief Otc 1 tab PO DAILY 02/14/23 02/16/23 Sinus Pill Otc 1 tab PO DAILY 02/14/23 02/16/23 Vitamin A Acetate [Vitamin A] 3,000 mcg SL DAILY 02/14/23 02/16/23 Zinc Gluconate [Zinc] 50 mg PO DAILY 02/14/23 02/16/23 lysine HCL [l-Lysine] 1,000 mg PO DAILY 02/14/23 02/16/23 Allergies Allergy/AdvReac Type Severity Reaction Status Date / Time latex Allergy Rash/Hives Verified 02/26/24 07:42 ciprofloxacin [From Cipro] AdvReac Chest Pain Verified 02/26/24 07:42 Review of Systems ROS Statement: Those systems with pertinent positive or pertinent negative responses have been documented in the HPI. ROS Other: All systems not noted in ROS Statement are negative. Past Medical History Past Medical History: Chest Pain / Angina, Hearing Disorder / Deafness, Hyperlipidemia, Osteoarthritis (OA) Additional Past Medical History / Comment(s): Hx chest pain r/t stress and kidney infection. Nausea, loose stool for years. Hearing slightly diminished. History of Any Multi-Drug Resistant Organisms: None Reported Past Surgical History: Appendectomy, Heart Catheterization, Tonsillectomy Additional Past Surgical History / Comment(s): [place] teeth extracted. Past Anesthesia/Blood Transfusion Reactions: Motion Sickness, Postoperative Nausea & Vomiting (PONV) Additional Past Anesthesia/Blood Transfusion Reaction / Comment(s): "Bled a lot with wisdom teeth surgery". Slow to wake up. Past Psychological History: Depression Smoking Status: Former smoker Past Alcohol Use History: Occasional Past Drug Use History: None Reported - Past Family History Mother Family Medical History: Pulmonary Embolus General Exam Limitations: no limitations General appearance: alert, in no apparent distress Head exam: Present: atraumatic, normocephalic, normal inspection Eye exam: Present: normal appearance, PERRL, EOMI. Absent: scleral icterus, conjunctival injection, periorbital swelling ENT exam: Present: normal exam, mucous membranes moist Neck exam: Present: normal inspection. Absent: tenderness, meningismus, lymphadenopathy Respiratory exam: Present: normal lung sounds bilaterally. Absent: respiratory distress, wheezes, rales, rhonchi, stridor Cardiovascular Exam: Present: regular rate, normal rhythm, normal heart sounds. Absent: systolic murmur, diastolic murmur, rubs, gallop, clicks GI/Abdominal exam: Present: soft, normal bowel sounds. Absent: distended, tenderness, guarding, rebound, rigid Extremities exam: Present: normal inspection, full ROM, normal capillary refill. Absent: tenderness, pedal edema, joint swelling, calf tenderness Back exam: Present: CVA tenderness (R) Neurological exam: Present: alert, oriented X3, CN II-XII intact Psychiatric exam: Present: normal affect, normal mood Skin exam: Present: warm, dry, intact, normal color. Absent: rash Course Vital Signs 0902/26/24 02/26/24 07:39 10:14 11:09 Temperature 97.9 F 98.1 F 98 F Pulse Rate 61 60 64 Respiratory 16 16 16 Rate Blood Pressure 119/77 124/85 120/81 O2 Sat by Pulse 98 99 99 Oximetry Medical Decision Making - Medical Decision Making Was pt. sent in by a medical professional or institution (, GERSON, LOG DRIVER, urgent care, hospital, or retirement...) When possible be specific @ -Urgent care Did you speak to anyone other than the patient for history (EMS, parent, family, police, friend...)? What history was obtained from this source @ -No Did you review nursing and triage notes (agree or disagree)? Why? @ -I reviewed and agree with nursing and triage notes Were old charts reviewed (outside hosp., previous admission, EMS record, old EKG, old radiological studies, urgent care reports/EKG's, retirement records)? Report findings @ -No old charts were reviewed Differential Diagnosis (chest pain, altered mental status, abdominal pain women, abdominal pain men, vaginal bleeding, weakness, fever, dyspnea, syncope, headache, dizziness, GI bleed, back pain, seizure, CVA, palpatations, mental health, musculoskeletal)? @ -Differential Abdominal Pain Women: Appendicitis, Cholecystitis, diverticulosis, ischemic bowel, pancreatitis, hepat itis, UTI, gastroenteritis, AAA, incarcerated hernia, bowel obstruction, constipation, inflammatory bowel, hepatitis, peptic ulcer disease, splenic infarction, perforated viscus, vulvitis, ovarian torsion, PID, kidney stone, placenta abruption, this is not meant to be an all-inclusive list EKG interpreted by me (3pts min.). @ -Not done X-rays interpreted by me (1pt min.). @ -None done CT interpreted by me (1pt min.). @ -Yes and demonstrates slight thickening to the right ureter U/S interpreted by me (1pt. min.). @ -None done What testing was considered but not performed or refused? (CT, X-rays, U/S, labs)? Why? @ -None What meds were considered but not given or refused? Why? @ -None Did you discuss the management of the patient with other professionals (professionals i.e. , GERSON, LOG DRIVER, lab, RT, psych nurse, long term care social worker, tempering oven operator, teacher, business enterprise officer, piano case maker)? Give summary @ -No Was smoking cessation discussed for >3mins.? @ -No Was critical care preformed (if so, how long)? @ -No Were there social determinants of health that impacted care today? How? (Homelessness, low income, unemployed, alcoholism, drug addiction, transportation, low edu. Level, literacy, decrease access to med. care, residential, rehab)? @ -No Was there de-escalation of care discussed even if they declined (Discuss DNR or withdrawal of care, Hospice)? DNR status @ -No What co-morbidities impacted this encounter? (DM, HTN, Smoking, COPD, CAD, Cancer, CVA, ARF, Chemo, Hep., AIDS, mental health diagnosis, sleep apnea, morbid obesity)? @ -None Was patient admitted / discharged? Hospital course, mention meds given and route, prescriptions, significant lab abnormalities, going to OR and other pertinent info. @ -Upon arrival patient seen and evaluated in room 33. Thorough history and physical exam was performed. Laboratory studies are conducted. CT was performed. No identifiable kidney stones. Urinalysis does demonstrate moderate blood however only 1 red blood cell. Discussed results with the patient. She does admit to gross hematuria. Informed her that we did not capture this in the emergency department however she will have to follow-up with the urology office if this is truly what she is experiencing. She may need a cystoscopy. Patient understood this. She is to return to the emergency department for any worsening symptoms. Patient agreeable to plan was discharged in stable condition Undiagnosed new problem with uncertain prognosis? @ -Yes Drug Therapy requiring intensive monitoring for toxicity (Heparin, Nitro, Insulin, Cardizem)? @ -No Were any procedures done? @ -No Diagnosis/symptom? @ -Acute right flank pain Acute, or Chronic, or Acute on Chronic? @ -, Acute Uncomplicated (without systemic symptoms) or Complicated (systemic symptoms)? @ -Complicated Side effects of treatment? @ -No Exacerbation, Progression, or Severe Exacerbation? @ -No Poses a threat to life or bodily function? How? (Chest pain, [place], NE, pneumonia, PE, COPD, DKA, ARF, appy, cholecystitis, CVA, Diverticulitis, Homicidal, Suicidal, threat to staff... and all critical care pts) @ -No - Lab Data Result diagrams: 02/26/24 08:29 02/26/24 08:29 Lab Results 02/26/24 02/26/24 02/26/24 Range/Units 08:29 08:29 08:29 WBC 4.6 (3.8-10.6) k/uL RBC 4.76 (3.80-5.40) m/uL Hgb 14.5 (11.4-16.0) gm/dL Hct 43.4 (34.0-46.0) % MCV 91.3 (80.0-100.0) fL MCH 30.5 (25.0-35.0) pg MCHC 33.4 (31.0-37.0) g/dL RDW 13.2 (11.5-15.5) % Plt Count 241 (150-450) k/uL MPV 8.2 Neutrophils % 55 % Lymphocytes % 31 % Monocytes % 7 % Eosinophils % 3 % Basophils % 1 % Neutrophils # 2.6 (1.3-7.7) k/uL Lymphocytes # 1.4 (1.0-4.8) k/uL Monocytes # 0.3 (0-1.0) k/uL Eosinophils # 0.2 (0-0.7) k/uL Basophils # 0.0 (0-0.2) k/uL Sodium 138 (137-145) mmol/L Potassium 5.1 (3.5-5.1) mmol/L Chloride 104 (98-107) mmol/L Carbon Dioxide 29 (22-30) mmol/L Anion Gap 5 mmol/L BUN 24 H (7-17) mg/dL Creatinine 0.93 (0.52-1.04) mg/dL Est GFR (CKD-EPI)AfAm 79 (>60 ml/min/1.73 sqM) Est GFR (CKD-EPI)NonAf 68 (>60 ml/min/1.73 sqM) Glucose 92 (74-99) mg/dL Calcium 9.8 (8.4-10.2) mg/dL Total Bilirubin 0.6 (0.2-1.3) mg/dL AST 32 (14-36) U/L ALT 17 (4-34) U/L Alkaline Phosphatase 71 (38-126) U/L Total Protein 7.3 (6.3-8.2) g/dL Albumin 4.4 (3.5-5.0) g/dL Lipase 77 (23-300) U/L Urine Color Colorless Urine Appearance Clear (Clear) Urine pH 5.0 (5.0-8.0) Ur Specific [place] 1.005 (1.001-1.035) Urine Protein Negative (Negative) Urine Glucose (UA) Negative (Negative) Urine Ketones Negative (Negative) Urine Blood Moderate H (Negative) Urine Nitrite Negative (Negative) Urine Bilirubin Negative (Negative) Urine Urobilinogen <2.0 (<2.0) mg/dL Ur Leukocyte Esterase Negative (Negative) Urine RBC 1 (0-5) /hpf Urine Mucus Rare H (None) /hpf Disposition Clinical Impression: Dysuria Disposition: HOME SELF-CARE Condition: Stable Instructions (If sedation given, give patient instructions): Dysuria (ED) Additional Instructions: Please call the urology office to make an appointment. They may want to do a cystoscopy if you have continued blood in your urine. We did not see blood today. Return for any new or worsening symptoms Is patient prescribed a controlled substance at d/c from ED?: No Referrals: Lenard Jackman DO [Primary Care Provider] - 1-2 days Rolando Rollins MD [STAFF PHYSICIAN] - 1-2 days Time of Disposition: 11:00
[2024-02-26 11:12] VITALS: BP 120/81; PULSE 64; TEMP 98
== END 2024-02-26 11:12 | disposition home or self-care (01) ==
LOC: EC 07:38
CPT/HCPCS: 36415; 74176; 80053; 81001; 83690; 85025; 99284

== ENCOUNTER → 2024-11-14 | Outpatient (CLI) | payer OTHER ==
--- NOTE | 2024-11-17 08:59 | BD ---
EXAMINATION TYPE: Axial Bone Density DATE OF EXAM: 11/14/2024 CLINICAL HISTORY: 58 years old Female. ICD-10 CODE: M81.6 LOCALIZED OSTEOPOROSIS [LEQUESNE] , Additi onal History: Height: 62.2 in Weight: 171 lbs FRAX RISK QUESTIONS: History of Fracture in Adulthood: t-spine fx age 50; rt wrist fx age 54 HISTORY OF: Spine Fracture: t-spine fx age 50 History of Wrist Fracture: rt wrist age 54 EXAM MEASUREMENTS: Bone mineral densitometry was performed using the [employer] System. Bone mineral density as measured about the Lumbar spine is: ----- L1-L4(G/cm2): 0.674 T Score Values are as follows: ----- L1: -3.8 ----- L2: -4.9 ----- L3: -4.3 ----- L4: -4.1 ----- L1-L4: -4.2 Z Score Values are as follows: ----- L1: -3.1 ----- L2: -4.3 ----- L3: -3.6 ----- L4: -3.4 ----- L1-L4: -3.5 Bone mineral density has: Increased 1.2% since study of: 10/02/2022 Bone mineral density about the R hip (g/cm2): 0.821 Bone mineral density about the L hip (g/cm2): 0.822 T Score values are as follows: -----R Neck: -1.9 -----L Neck: -2.0 -----R Total: -1.5 -----L Total: -1.5 Z Score values are as follows: -----R Neck: -1.0 -----L Neck: -1.1 -----R Total: -0.9 -----L Total: -0.9 Bone mineral density has: Decreased -1.9% since study of: 10/02/2022 FRAX%s: The graph provided illustrates a 15.3% chance for a major osteoporotic fx and a 2.0% chance f or the hips probability for fx in 10 years time. IMPRESSION: Osteoporosis (T Score less than -2.5). There is increased fracture risk and therapy is usually indicated based on age. Re-Screen 1-2 years. NOTE: T-SCORE=SD OF THE YOUNG ADULT MEAN. [facility], , 11/17/2024 8:56 AM
== END | disposition home or self-care (01) ==
LOC: RADBDWWP 16:30
PROVIDERS: ATTEND Family Medicine
DX: M81.6 Localized osteoporosis [Lequesne] (principal)
CPT/HCPCS: 77080